=== PATIENT | male | born 1965 | race Caucasian/White ===

== ENCOUNTER → 2018-03-26 | Outpatient (CLI) | payer BC | LOC: COL.RAD 03-24 07:30 | DX: M99.73 Connective tissue and disc stenosis of intervertebral foramina of lumbar region (principal); M47.27 Other spondylosis with radiculopathy, lumbosacral region; M48.061 Spinal stenosis, lumbar region without neurogenic claudication; R01.1 Cardiac murmur, unspecified; I37.1 Nonrheumatic pulmonary valve insufficiency ==

== ENCOUNTER → 2018-05-31 | Outpatient (CLI) | payer BC | LOC: MHCPAIN 08:22 | DX: G89.29 Other chronic pain (principal); M47.817 Spondylosis without myelopathy or radiculopathy, lumbosacral region; M54.16 Radiculopathy, lumbar region; M53.3 Sacrococcygeal disorders, not elsewhere classified | CPT/HCPCS: G0463 ==